=== PATIENT | female | born 1955 | race African-American/Black ===

== ENCOUNTER 2022-03-19 08:32 | Outpatient (CLI) | payer OTHER | END 2022-03-19 08:33 | disposition home or self-care (01) | LOC: ULT 08:32 | PROVIDERS: ATTEND Internal Medicine Endocrinology, Diabetes & Metabolism | DX: E83.52 Hypercalcemia (principal); E04.2 Nontoxic multinodular goiter | CPT/HCPCS: 76536 ==

== ENCOUNTER 2022-06-18 09:32 | Outpatient (CLI) | payer OTHER | END 2022-06-18 09:33 | disposition home or self-care (01) | LOC: NM 09:32 | PROVIDERS: ATTEND Internal Medicine Endocrinology, Diabetes & Metabolism | DX: E83.52 Hypercalcemia (principal); R94.6 Abnormal results of thyroid function studies | CPT/HCPCS: 78072; A9500 ==

== ENCOUNTER 2024-11-23 09:18 | Outpatient (CLI) | payer OTHER ==
[2024-11-23] MEDS ORDERED: Iopamidol 370 76% 100 ML VIAL ONE (12:58)
== END 2024-11-23 09:19 | disposition home or self-care (01) ==
LOC: CT 09:18
PROVIDERS: ATTEND Physician Assistant Medical
DX: R10.30 Lower abdominal pain, unspecified (principal); R14.0 Abdominal distension (gaseous); K57.30 Diverticulosis of large intestine without perforation or abscess without bleeding
CPT/HCPCS: 74177; Q9967